=== PATIENT | male | born 1990 | race Caucasian/White ===

== ENCOUNTER 2016-06-05 16:17 | Emergency (ER) | payer OTHER ==
[2016-06-05 16:22] VITALS: BP 125/64; PULSE 91; TEMP 99.7; BMI 26.6
[2016-06-05] MEDS ORDERED: SODIUM CHLORIDE 1,000 ML IV STA (18:44)
--- NOTE | 2016-06-05 18:50 | PDOC ---
[id number] Source: Patient Exam Limitations: No Limitations - History of Present Illness Travel History: No Initial Comments: 06/05/16 18:49 25 yr male no medical history c/o diarrhea and abd pain for 3 days. Pt has had this in the past about 3 yrs ago resolved on own. Pt traveled to [facility] 4 months ago . no allergies, no nausea or vomiting. no back pain Timing/Duration: reports: constant Quality: reports: mild Abdominal Pain Onset Location: reports: generalized abdomen Pain Radiation: reports: no radiation Activities at Onset: reports: none <Nicol Ruby - Last Filed: 06/08/16 16:18> - General Chief Complaint: Diarrhea Stated Complaint: ABD PAIN Time Seen by Provider: 06/05/16 17:43 Past History <Tammie Hurtado - Last Filed: 06/05/16 20:47> - Past Medical History Other medical history: denies - Psycho/Social/Smoking Cessation Hx Anxiety: No Suicidal Ideation: No Smoking History: Never smoked Information on smoking cessation initiated: No Hx Alcohol Use: No Drug/Substance Use Hx: No <Nicol Ruby - Last Filed: 06/08/16 16:18> - Past Medical History Allergies/Adverse Reactions: Allergies Allergy/AdvReac Type Severity Reaction Status Date / Time No Known Allergies Allergy Verified 06/05/16 16:19 Home Medications: Ambulatory Orders Ciprofloxacin HCl [Cipro] 500 mg PO BID #10 tablet 06/05/16 L. Acidophilus/Pectin, [place] [Acidophilus Probiotic Capsule] 2 each PO TID #21 capsule 06/05/16 Metronidazole [Flagyl -] 500 mg PO TID #15 tablet 06/05/16 Review of Systems - Review of Systems Able to Perform ROS?: Yes Is the patient limited Arabic proficient: No Respiratory: No: Symptoms reported Cardiac (ROS): No: Symptoms Reported ABD/GI: Yes: See HPI : No: Symptoms Reported Musculoskeletal: No: Symptoms Reported Integumentary: No: Symptoms Reported Neurological: No: Symptoms reported <Nicol Ruby - Last Filed: 06/08/16 16:18> *Physical Exam - Vital Signs Last Vital Signs Temp Pulse Resp BP Pulse Ox 99.7 F H 91 H 20 125/64 99 06/05/16 16:20 06/05/16 16:20 06/05/16 16:20 06/05/16 16:20 06/05/16 16:20 <BryantTammie - Last Filed: 06/05/16 20:47> - Vital Signs Last Vital Signs Temp Pulse Resp BP Pulse Ox 99.7 F H 91 H 20 125/64 99 06/05/16 16:20 06/05/16 16:20 06/05/16 16:20 06/05/16 16:20 06/05/16 16:20 - Physical Exam General Appearance: Yes: Nourished, Appropriately Dressed HEENT: positive: EOMI, RJ, Normal ENT Inspection, TMs Normal, Pharynx Normal Neck: positive: Supple Respiratory/Chest: positive: Lungs Clear, Normal Breath Sounds Cardiovascular: positive: Regular Rhythm, Regular Rate Gastrointestinal/Abdominal: positive: Normal Bowel Sounds, Soft, Other (no localised tenderness ). negative: Tender Male Genitalia: positive: normal genitalia. negative: discharge, testicular tenderness Rectal Exam: positive: normal exam, normal rectal tone. negative: melena, hemorrhoids Lymphatic: negative: Adenopathy Musculoskeletal: positive: Normal Inspection Extremity: positive: Normal Capillary Refill, Normal Inspection, Normal Range of Motion Integumentary: positive: Normal Color, Dry, Warm Neurologic: positive: Fully Oriented, Alert, Normal Mood/Affect, Normal Response , Motor Strength 5/5 <Nicol Ruby - Last Filed: 06/08/16 16:18> ED Treatment Course - LABORATORY CBC & Chemistry Diagram: 06/05/16 19:38 06/05/16 19:38 - ADDITIONAL ORDERS Additional order review: Laboratory Results 06/05/16 06/05/16 06/05/16 19:38 19:38 19:38 Sodium 140 Potassium 4.5 Chloride 102 Carbon Dioxide 33 H Anion Gap 5 L BUN 11 Creatinine 0.9 Creat Clearance w eGFR > 60 Random Glucose 107 H Calcium 9.0 Total Bilirubin 0.6 AST 17 ALT 25 Alkaline Phosphatase 64 Total Protein 8.2 Albumin 3.9 Urine Color Yellow Urine Appearance Slcloudy Urine pH 6.0 Ur Specific [place] 1.029 Urine Protein Negative Urine Glucose (UA) Negative Urine Ketones Negative Urine Blood Negative Urine Nitrite Negative Urine Bilirubin Negative Urine Urobilinogen 4.0 e.u/dl Ur Leukocyte Esterase Negative Stool Occult Blood Negative 06/05/16 19:38 RBC 4.69 MCV 91.3 MCHC 32.5 RDW 12.5 MPV 8.4 Neutrophils % 71.3 Lymphocytes % 15.5 Monocytes % 10.2 Eosinophils % 2.5 Basophils % 0.5 - Medications Given in the ED: ED Medications Discontinued Medications Generic Name Dose Route Start Last Admin Trade Name Sudeep PRN Reason Stop Dose Admin Sodium Chloride 1,000 mls @ 1,000 mls/hr 06/05/16 18:44 06/05/16 19:26 Normal Saline - IV 06/05/16 19:43 Not Given ASDIR STA <Tammie Hurtado - Last Filed: 06/05/16 20:47> - LABORATORY CBC & Chemistry Diagram: 06/05/16 19:38 06/05/16 19:38 <Nicol Ruby - Last Filed: 06/08/16 16:18> Medical Decision Making - Medical Decision Making 06/05/16 20:48 Laboratory Tests 06/05/16 06/05/16 06/05/16 19:38 19:38 19:38 WBC 11.6 H RBC 4.69 Hgb 13.9 Hct 42.9 MCV 91.3 MCHC 32.5 RDW 12.5 Plt Count 305 MPV 8.4 Neutrophils % 71.3 Lymphocytes % 15.5 Monocytes % 10.2 Eosinophils % 2.5 Basophils % 0.5 Sodium 140 Potassium 4.5 Chloride 102 Random Glucose 107 H Calcium 9.0 Total Bilirubin 0.6 AST 17 ALT 25 Alkaline Phosphatase 64 Total Protein 8.2 Albumin 3.9 Urine Color Yellow Urine Appearance Slcloudy Urine pH 6.0 Ur Specific [place] 1.029 Urine Protein Negative Urine Glucose (UA) Negative Urine Ketones Negative Urine Blood Negative Urine Nitrite Negative Urine Bilirubin Negative Urine Urobilinogen 4.0 e.u/dl Ur Leukocyte Esterase Negative Stool Occult Blood 06/05/16 19:38 WBC RBC Hgb Hct MCV MCHC RDW Plt Count MPV Neutrophils % Lymphocytes % Monocytes % Eosinophils % Basophils % Sodium Potassium Chloride Random Glucose Calcium Total Bilirubin AST ALT Alkaline Phosphatase Total Protein Albumin Urine Color Urine Appearance Urine pH Ur Specific [place] Urine Protein Urine Glucose (UA) Urine Ketones Urine Blood Urine Nitrite Urine Bilirubin Urine Urobilinogen Ur Leukocyte Esterase Stool Occult Blood Negative <Tammie Hurtado - Last Filed: 06/05/16 20:47> - Medical Decision Making 06/05/16 19:10 cc: mucousy diarrhea, abd pain for 3 days no fever no vomiting, pt tolerating po, drinking well will check labs, stool cultures 06/05/16 20:03 signed out to Tammie Hurtado NP <Nicol Ruby - Last Filed: 06/08/16 16:18> *DC/Admit/Observation/Transfer <Tammie Hurtado - Last Filed: 06/05/16 20:47> <Nicol Ruby - Last Filed: 06/08/16 16:18> Diagnosis at time of Disposition: Diarrhea Qualifiers: Diarrhea type: unspecified type Qualified Code(s): R19.7 - Diarrhea, unspecified - Discharge Dispostion Disposition: HOME Condition at time of disposition: Stable - Prescriptions Prescriptions: L. Acidophilus/Pectin, [place] [Acidophilus Probiotic Capsule] 2 each PO TID #21 capsule Ciprofloxacin HCl [Cipro] 500 mg PO BID #10 tablet Metronidazole [Flagyl -] 500 mg PO TID #15 tablet - Referrals Referrals: Hang Bar MD [Staff Physician] - - Patient Instructions Additional Instructions: follow with your doctor or with the gatroenterologist Dr. Bar for follow up if symptoms continue bland diet avoid spicy foods, avoid fatty fodds eat rice , high fiber drink at least 2 liters of water a day take the mediations as prescribed take acidophulous as directed return if any worsening symptoms, bloody diarrhea , severe pain or vomiting or any other concerns
[2016-06-05 19:52] LABS: BASOPHIL 0.5 % (0-2.0); EOSINOPHIL 2.5 % (0-4.5); MCH 29.7 pg (25.7-33.7); MCHC 32.5 g/dl (32.0-35.9); MEAN CELL VOLUME 91.3 fl (80-96); MEAN PLT VOLUME 8.4 fl (7.5-11.1); NEUTROPHILS 71.3 % (42.8-82.8); PLATELET COUNT 305 K/MM3 (134-434); RDW 12.5 % (11.9-15.9); WHITE BLOOD COUNT 11.6 K/mm3 (4.0-10.0)
[2016-06-05 19:55] LABS: URINE APPEARANCE SLCLOUDY; URINE BILIRUBIN NEGATIVE (NEGATIVE); URINE BLOOD NEGATIVE (NEGATIVE); URINE COLOR YELLOW; URINE GLUCOSE (UA) NEGATIVE (NEGATIVE); URINE KETONE NEGATIVE (NEGATIVE); URINE LEUK ESTERASE NEGATIVE (NEGATIVE); URINE NITRITE NEGATIVE (NEGATIVE); URINE PROTEIN NEGATIVE (NEGATIVE); URINE UROBILINOGEN 4.0 E.U/dl E.U./dl (0.2-1.0)
[2016-06-05 20:16] LABS: ALBUMIN 3.9 g/dl (3.4-5.0); ANION GAP 5 (8-16); CO2 33 mmol/L (21-32); GLUCOSE,RANDOM 107 mg/dL (74-106)
[2016-06-05 20:20] LABS: ALK PHOS 64 U/L (45-117); BILIRUBIN,TOTAL 0.6 mg/dL (0.2-1.0); CREATININE 0.9 mg/dL (0.7-1.3); SGOT/AST 17 U/L (15-37); SGPT/ALT 25 U/L (12-78); TOT PROT 8.2 g/dl (6.4-8.2)
== END 2016-06-05 21:19 | disposition home or self-care (01) ==
LOC: JERFT 16:17
DX: R19.7 Diarrhea, unspecified (principal)
CPT/HCPCS: 36415; 80053; 81003; 82272; 85025; 87491; 87591; 99281-25

== ENCOUNTER → 2016-07-05 | Emergency (ER) | payer OTHER ==
[~2016-07-05] MED LIST: SODIUM CHLORIDE 1,000 ML IV STA
[2016-07-05 08:20] VITALS: BP 121/56; PULSE 83; TEMP 98.3; BMI 26.6
--- NOTE | 2016-07-05 09:04 | PDOC ---
History of Present Illness - General Chief Complaint: Pain Stated Complaint: ABD PAIN Time Seen by Provider: 07/05/16 08:46 History Source: Patient Exam Limitations: No Limitations - History of Present Illness Initial Comments: CHIEF COMPLAINT: 25 y/o afebrile male with no significant PMH c/o watery diarrhea and left lower abdominal pain for the past 4 days. HISTORY OF PRESENT ILLNESS: The patient also admits to fever yesterday of 101 and this morning. He took Aleve last night and this morning for the fever. He denies FERNANDEZ, n/v, CP, SOB, back pain, hematuria, dysuria. He traveled to the [facility] 5 months ago. PCP is Dr. Alfredo Griffin Vital signs on arrival are within normal limits. REVIEW OF SYSTEMS: GENERAL/CONSTITUTIONAL: +fever to 101. No weakness. No weight change. HEAD, EYES, EARS, NOSE AND THROAT: No change in vision. No ear pain or discharge. No sore throat. CARDIOVASCULAR: No chest pain or shortness of breath. RESPIRATORY: No cough, wheezing, or hemoptysis. GASTROINTESTINAL: +left lower abdominal pain with watery diarrhea. GENITOURINARY: No dysuria, frequency, or change in urination. MUSCULOSKELETAL: No joint or muscle swelling or pain. No neck or back pain. SKIN: No rash or easy bruising. NEUROLOGIC: No headache, vertigo, loss of consciousness, or loss of sensation. PHYSICAL EXAM: GENERAL: The patient is awake, alert, and fully oriented, in no acute distress. He is well appearing and ambulatory. HEAD: Normal with no signs of trauma. ENT: Pupils equal, round and reactive to light, extraocular movements intact, sclera anicteric, conjunctiva clear. Neck supple. LUNGS: Clear to auscultation bilaterally. Normal excursion. No respiratory distress or use of accessory muscles. CV: RRR, S1/S2, no MRG. Cap refill < 2 sec. ABDOMEN: Soft, non-distended, TTP of left lower quadrant and left pelvic region. No rebound or guarding. No flank pain. hyperactive bowel sounds LLQ. BACK: No CVA TTP b/l. EXTREMITIES: Normal range of motion, no edema. NEUROLOGICAL: Normal speech, normal gait. CN II-XII grossly intact. PSYCH: Normal mood, normal affect. SKIN: Warm, dry, normal turgor, no rashes or lesions noted. Past History - Past Medical History Allergies/Adverse Reactions: Allergies Allergy/AdvReac Type Severity Reaction Status Date / Time No Known Allergies Allergy Verified 07/05/16 08:20 Home Medications: Ambulatory Orders Ciprofloxacin HCl [Cipro] 500 mg PO BID #10 tablet 06/05/16 L. Acidophilus/Pectin, [place] [Acidophilus Probiotic Capsule] 2 each PO TID #21 capsule 06/05/16 Metronidazole [Flagyl -] 500 mg PO TID #15 tablet 06/05/16 Ciprofloxacin [Cipro -] 500 mg PO BID #10 tablet 07/05/16 Metronidazole [Flagyl -] 500 mg PO TID #15 tablet 07/05/16 - Psycho/Social/Smoking Cessation Hx Anxiety: No Suicidal Ideation: No Smoking History: Never smoked Information on smoking cessation initiated: No Hx Alcohol Use: No Drug/Substance Use Hx: No *Physical Exam - Vital Signs Last Vital Signs Temp Pulse Resp BP Pulse Ox 98.3 F 83 18 121/56 100 07/05/16 08:14 07/05/16 08:14 07/05/16 08:14 07/05/16 08:14 07/05/16 08:14 ED Treatment Course - LABORATORY CBC & Chemistry Diagram: 07/05/16 09:06 07/05/16 09:06 Medical Decision Making - Medical Decision Making A/P: 25 y/o male with left lower quadrant pain with watery diarrhea and fever for the past 4 days. Plan is as follows: 1. Labs 2. UA/culture 3. IV fluids 4. Stool culture Labs unremarkable. UA unremarkable. The patient states he feels better. He was not able to provide a stool sample. The patient was here 1 month ago with the same symptoms and did not provide a stool sample and did not follow up with the referred GI doctor. I will discharge to home with rx for cipro and flagyl. I instructed the patient to call not only his PCP, Alfredo Griffin, tomorrow, but also the referred GI physician. I instructed him that now this has happened twice he needs follow up and further testing. The patient verbalizes understanding of all instructions, has no further questions and is awaiting discharge. *DC/Admit/Observation/Transfer Diagnosis at time of Disposition: Diarrhea Qualifiers: Diarrhea type: unspecified type Qualified Code(s): R19.7 - Diarrhea, unspecified - Discharge Dispostion Disposition: HOME Condition at time of disposition: Improved - Prescriptions Prescriptions: Ciprofloxacin [Cipro -] 500 mg PO BID #10 tablet Metronidazole [Flagyl -] 500 mg PO TID #15 tablet - Referrals Referrals: Alfredo Griffin MD [Primary Care Provider] - Call tomorrow Kurtis Alvarenga MD [Staff Physician] - - Patient Instructions Printed Discharge Instructions: DI for Diarrhea and Traveler's Diarrhea -- Adult, Probiotics May Decrease Intensity and Duration of Diarrhea Due to Infection Additional Instructions: Discharge Instructions: -Take medications as prescribed; they were sent to your pharmacy -Follow up with Dr. Griffin and Dr. Alvarenga within 1 week for follow up -Return to the ER with any worsening or concerning symptoms
[2016-07-05 09:20] LABS: BASOPHIL 0.5 % (0-2.0); EOSINOPHIL 0.5 % (0-4.5); MCH 30.7 pg (25.7-33.7); MCHC 33.3 g/dl (32.0-35.9); MEAN CELL VOLUME 92.3 fl (80-96); MEAN PLT VOLUME 8.5 fl (7.5-11.1); NEUTROPHILS 69.8 % (42.8-82.8); PLATELET COUNT 264 K/MM3 (134-434); RDW 12.7 % (11.9-15.9); WHITE BLOOD COUNT 11.6 K/mm3 (4.0-10.0)
[2016-07-05 09:39] LABS: URINE APPEARANCE CLEAR; URINE BILIRUBIN NEGATIVE (NEGATIVE); URINE BLOOD NEGATIVE (NEGATIVE); URINE GLUCOSE (UA) NEGATIVE (NEGATIVE); URINE KETONE NEGATIVE (NEGATIVE); URINE LEUK ESTERASE NEGATIVE (NEGATIVE); URINE NITRITE NEGATIVE (NEGATIVE); URINE UROBILINOGEN NEGATIVE E.U./dl (0.2-1.0)
[2016-07-05 09:40] LABS: URINE COLOR DK YELLOW; URINE PROTEIN 1+ (NEGATIVE)
[2016-07-05 09:42] LABS: URINE HYALINE CAST 2 /lpf; URINE MUCUS MANY; URINE RBC 1 /hpf (0-3); URINE WBC 2 /hpf (3-5)
[2016-07-05 10:00] LABS: ALK PHOS 60 U/L (45-117); ANION GAP 9 (8-16); BILIRUBIN,TOTAL 0.9 mg/dL (0.2-1.0); CALCIUM 9.2 mg/dL (8.5-10.1); CO2 30 mmol/L (21-32); CREATININE 0.8 mg/dL (0.7-1.3); GLUCOSE,RANDOM 84 mg/dL (74-106); SGOT/AST 13 U/L (15-37); SGPT/ALT 19 U/L (12-78)
== END | disposition home or self-care (01) ==
LOC: JER 08:13
PROC: 3E0337Z Introduction of Electrolytic and Water Balance Substance into Peripheral Vein, Percutaneous Approach (ICD-10-PCS; principal; 2016-07-05)
DX: R19.7 Diarrhea, unspecified (principal)
CPT/HCPCS: 36415; 80053; 81003; 81015; 85025; 87086; 99283-25